=== PATIENT | female | born 1985 | race Caucasian/White ===

== ENCOUNTER 2016-10-31 19:10 | Observation (INO) | payer OTHER ==
[~2016-10-31] VITALS: Ht 170.2 cm; Wt 53.0 kg
[~2016-10-31 19:10] MED LIST: AMOXICILLIN875 MG PO; CIPROFLOXACIN500 M1 PO; IBUPROFEN 200200 M1 PO; IBUPROFEN 400400 M2 PO; IBUPROFEN 600600 M1 PO; NAPROSYN500 MG PO; NOHOMEMEDICATIONS; NORCO 5-325 TA1 EACH PO; NORCO 7.5-3251 EACH PO; PENICILLIN V P500 MG PO; PERCOCET 5-3251 EACH PO; PREDNISONE 20 M20 M1 PO; TRAMADOL 50 MG50 MG PO; TYLENOL325 MG PO; ZOFRAN ODT4 MG PO
[2016-10-31 19:44] LABS: URINE BILIRUBIN NEGATIVE (Negative); URINE BLOOD NEGATIVE (Negative); URINE COLOR YELLOW; URINE GLUCOSE-RANDOM* NEGATIVE (Negative); URINE KETONES NEGATIVE (Negative); URINE LEUKOCYTES-REFLEX NEGATIVE (Negative); URINE PROTEIN (DIPSTICK) NEGATIVE (Negative); URINE SPECIFIC GRAVITY 1.015 (1.003-1.035); URINE UROBILINOGEN 0.2 E.U./dl (0.2-1.0)
[2016-10-31 20:39] LABS: ABSOLUTE NEUTROPHILS 5.1 thou/uL (1.4-8.2); BASOPHILS 0.7 % (0.0-2.0); EOSINOPHILS 1.6 % (0.0-3.0); HEMATOCRIT 41.9 % (37.0-47.0); HEMOGLOBIN 14.2 gm/dL (12.0-15.0); LYMPHOCYTES 30.9 % (24.0-44.0); MCH 31.1 pg (26.0-34.0); MCHC 33.9 g/dL (28.0-37.0); MCV 91.8 fL (80.0-100.0); PLATELET COUNT 232 thou/uL (150-400); POLYS 59.8 % (36.0-66.0); RBC 4.56 mil/uL (4.20-5.00); RDW 12.6 % (10.5-14.5); WBC 8.6 thou/uL (4.0-11.0)
[2016-10-31 20:46] LABS: MANUAL DIFF NO
[2016-10-31 20:50] LABS: CALCIUM 9.1 mg/dL (8.5-10.1); CREATININE 0.9 mg/dL (0.6-1.0); POTASSIUM 3.6 mmol/L (3.5-5.1)
[2016-10-31 20:56] LABS: ALBUMIN 3.9 g/dL (3.4-5.0); TOTAL BILIRUBIN 0.4 mg/dL (<0.1-1.0); TOTAL PROTEIN 7.2 g/dL (6.4-8.2)
[2016-10-31 22:18] VITALS: BP 137/97
[2016-10-31 22:45] VITALS: BP 143/101
[2016-11-01 04:00] VITALS: BP 137/84
[2016-11-01 04:09] LABS: HEMATOCRIT 37.8 % (37.0-47.0); MCH 31.5 pg (26.0-34.0); MCHC 34.5 g/dL (28.0-37.0); MCV 91.4 fL (80.0-100.0); RBC 4.14 mil/uL (4.20-5.00); RDW 12.6 % (10.5-14.5); WBC 7.4 thou/uL (4.0-11.0)
[2016-11-01 04:23] LABS: CALCIUM 8.4 mg/dL (8.5-10.1); CREATININE 0.8 mg/dL (0.6-1.0); MAGNESIUM 1.9 mg/dL (1.8-2.4); POTASSIUM 3.7 mmol/L (3.5-5.1)
[2016-11-01 08:05] VITALS: BP 134/105
[2016-11-01 11:20] VITALS: BP 119/81
[2016-11-01 15:25] VITALS: BP 141/86
[2016-11-01 20:30] VITALS: BP 153/66
[2016-11-02 04:35] VITALS: BP 113/78
[2016-11-02 06:06] LABS: ABSOLUTE NEUTROPHILS 2.4 thou/uL (1.4-8.2); EOSINOPHILS 2.7 % (0.0-3.0); HEMATOCRIT 33.2 % (37.0-47.0); HEMOGLOBIN 11.5 gm/dL (12.0-15.0); MCH 31.5 pg (26.0-34.0); MCHC 34.6 g/dL (28.0-37.0); MCV 91.1 fL (80.0-100.0); MONOCYTES 9.2 % (1.0-8.0); PLATELET COUNT 153 thou/uL (150-400); POLYS 53.1 % (36.0-66.0); RBC 3.65 mil/uL (4.20-5.00); RDW 12.5 % (10.5-14.5); WBC 4.6 thou/uL (4.0-11.0)
[2016-11-02 06:14] LABS: MANUAL DIFF NO
[2016-11-02 06:20] LABS: CALCIUM 8.1 mg/dL (8.5-10.1); CREATININE 0.8 mg/dL (0.6-1.0); MAGNESIUM 1.7 mg/dL (1.8-2.4); POTASSIUM 3.7 mmol/L (3.5-5.1)
[2016-11-02] MEDS ORDERED: XANAX 0.5 MG0.5 MG PO (14:14)
[2016-11-02] MEDS ORDERED: ZOFRAN ODT4 MG PO ×2 (14:15→14:19)
[2016-11-02] MEDS ORDERED: IBUPROFEN 600600 M1 PO (14:15)
[2016-11-02] MEDS ORDERED: HYDROCODONE-AP1 EAC6 PO (14:18)
[2016-11-02 15:16] VITALS: BP 113/78
== END 2016-11-02 15:42 | disposition home or self-care (01) ==
LOC: ER 19:10 → EROBS 21:43 → 2N 21:43
PROVIDERS: Emergency Medicine; Internal Medicine; Nurse Practitioner Acute Care
DX: R10.9 Unspecified abdominal pain (principal); E83.42 Hypomagnesemia; Z87.891 Personal history of nicotine dependence; Z98.51 Tubal ligation status

== ENCOUNTER 2018-03-12 13:17 | Emergency (ER) | payer OTHER ==
[~2018-03-12] VITALS: Ht 167.6 cm; Wt 49.9 kg
[~2018-03-12 13:17] MED LIST changes: +HYDROCODONE-AP1 EAC6 PO; +XANAX 0.5 MG0.5 MG PO
[2018-03-12 14:28] LABS: ABSOLUTE NEUTROPHILS 2.9 thou/uL (1.4-8.2); EOSINOPHILS 3.6 % (0.0-3.0); HEMATOCRIT 38.5 % (37.0-47.0); HEMOGLOBIN 13.3 gm/dL (12.0-15.0); LYMPHOCYTES 28.7 % (24.0-44.0); MCH 31.5 pg (26.0-34.0); MCHC 34.6 g/dL (28.0-37.0); PLATELET COUNT 233 thou/uL (150-400); POLYS 56.7 % (36.0-66.0); RBC 4.24 mil/uL (4.20-5.00); RDW 12.5 % (10.5-14.5); WBC 5.1 thou/uL (4.0-11.0)
[2018-03-12 14:37] LABS: CALCIUM 8.3 mg/dL (8.5-10.1); CREATININE 0.9 mg/dL (0.6-1.0); POTASSIUM 3.5 mmol/L (3.5-5.1)
[2018-03-12] MEDS ORDERED: NORCO 5-325 TA1 EACH PO (17:31)
[2018-03-12] MEDS ORDERED: IBUPROFEN 600600 M1 PO (17:31)
[2018-03-12] MEDS ORDERED: SENNA-DOCUSATE1 EAC1 PO (17:31)
[2018-03-12 18:30] VITALS: BP 126/69
== END 2018-03-12 18:32 | disposition home or self-care (01) ==
LOC: ER 13:17
PROVIDERS: Emergency Medicine
DX: N92.1 Excessive and frequent menstruation with irregular cycle (principal); N80.9 Endometriosis, unspecified; Z88.1 Allergy status to other antibiotic agents; Z88.2 Allergy status to sulfonamides; Z87.891 Personal history of nicotine dependence; Z98.890 Other specified postprocedural states

== ENCOUNTER 2018-04-29 11:20 | Emergency (ER) | payer OTHER ==
[~2018-04-29] VITALS: Ht 157.5 cm; Wt 49.9 kg
[~2018-04-29 11:20] MED LIST changes: +SENNA-DOCUSATE1 EAC1 PO
[2018-04-29] MEDS ORDERED: PREDNISONE 20 M20 MG PO (12:58)
[2018-04-29] MEDS ORDERED: PROMETH-CODEIN 65 ML PO (12:58)
[2018-04-29] MEDS ORDERED: VENTOLIN HFA 1818 GM INH (12:59)
[2018-04-29 13:07] VITALS: BP 131/65
--- NOTE | 2018-04-29 13:44 | EKG ---
[place] [address] [facility] [place] [address] ELECTROCARDIOGRAM REPORT Name: SHIRAZCHETAN LANGFORD Room #: DEP [facility] [id number] ������������������ Admission: 04/29/18 ������������������ Attend Phys: Discharge: 04/29/18 ������������������ Date of : 83 Report #: [id number] ����������������������������������������������������������������� [id number] THIS REPORT FOR: //name// [facility] ED Test Date: 2018-04-29 Test Time: 12:10:46 Pat Name: CHETAN WELDON Department: Room: Gender: F Head [employer] Operator: BIA : 1985 Requested By: Roxana Dubon Order Number: [id number] MD: Jm Serra Measurements Intervals [place] Rate: 77 P: 27 [place]: 165 QRS: 87 QRSD: 95 T: 38 QT: 382 QTc: 433 Interpretive Statements Sinus rhythm No significant abnormality No previous ECG available for comparison Electronically Signed On 04-29-2018 13:44:05 CDT by Jm Serra [email or web address] ��������������������������������������������� <ELECTRONICALLY SIGNED> ���������������������������������������� By: Jm Serra MD, [facility] ��������������������������������������������� 04/29/18 1344 1210 1210 Jm Serra MD, FACC /EPI
== END 2018-04-29 13:39 | disposition home or self-care (01) ==
LOC: ER 11:20
DX: J20.8 Acute bronchitis due to other specified organisms (principal); R09.1 Pleurisy; R42 Dizziness and giddiness; Z87.891 Personal history of nicotine dependence; Z88.1 Allergy status to other antibiotic agents; Z88.2 Allergy status to sulfonamides

== ENCOUNTER 2020-12-14 19:32 | Emergency (ER) | payer OTHER ==
[~2020-12-14] VITALS: Ht 167.6 cm; Wt 53.1 kg
[~2020-12-14 19:32] MED LIST changes: +PREDNISONE 20 M20 MG PO; +PROMETH-CODEIN 65 ML PO; +VENTOLIN HFA 1818 GM INH
[2020-12-14 20:19] LABS: ABSOLUTE NEUTROPHILS 4.7 thou/uL (1.4-8.2); BASOPHILS 0.9 % (0.0-2.0); EOSINOPHILS 5.9 % (0.0-3.0); HEMATOCRIT 43.6 % (37.0-47.0); HEMOGLOBIN 14.4 gm/dL (12.0-15.0); LYMPHOCYTES 23.9 % (24.0-44.0); MCH 30.8 pg (26.0-34.0); MCV 93.3 fL (80.0-100.0); MONOCYTES 9.4 % (1.0-8.0); PLATELET COUNT 282 thou/uL (150-400); POLYS 59.9 % (36.0-66.0); RBC 4.67 mil/uL (4.20-5.00); RDW 12.7 % (10.5-14.5); WBC 7.8 thou/uL (4.0-11.0)
[2020-12-14 20:24] LABS: CALCIUM 8.9 mg/dL (8.5-10.1); CREATININE 0.9 mg/dL (0.6-1.0)
[2020-12-14 20:30] LABS: ALBUMIN 4.1 g/dL (3.4-5.0); TOTAL BILIRUBIN 0.8 mg/dL (0.2-1.0); TOTAL PROTEIN 7.5 g/dL (6.4-8.2)
[2020-12-14 20:37] LABS: URINE BILIRUBIN NEGATIVE (Negative); URINE BLOOD TRACE (Negative); URINE CLARITY CLEAR; URINE COLOR YELLOW; URINE GLUCOSE-RANDOM* NEGATIVE (Negative); URINE KETONES NEGATIVE (Negative); URINE LEUKOCYTES-REFLEX NEGATIVE (Negative); URINE NITRITE-REFLEX NEGATIVE (Negative); URINE PROTEIN (DIPSTICK) NEGATIVE (Negative); URINE SPECIFIC GRAVITY >= 1.030 (1.005-1.035); URINE UROBILINOGEN 0.2 E.U./dl (0.2-1.0)
[2020-12-14 22:03] VITALS: BP 138/74
== END 2020-12-14 22:04 | disposition home or self-care (01) ==
LOC: ER 19:32
PROVIDERS: Emergency Medicine
DX: R10.31 Right lower quadrant pain (principal); R19.7 Diarrhea, unspecified; Z79.51 Long term (current) use of inhaled steroids; Z79.899 Other long term (current) drug therapy; Z79.891 Long term (current) use of opiate analgesic; Z79.1 Long term (current) use of non-steroidal anti-inflammatories (NSAID); Z88.1 Allergy status to other antibiotic agents; Z88.2 Allergy status to sulfonamides; Z88.8 Allergy status to other drugs, medicaments and biological substances; Z87.891 Personal history of nicotine dependence